=== PATIENT | female | born 1985 | race Caucasian/White ===

== ENCOUNTER 2018-04-23 12:23 | Inpatient (IN) | payer OTHER ==
--- NOTE | 2018-04-23 13:22 | OBHP ---
Datetime: 04/23/2018 13:16 IP Adm Impression: Term, intrauterine IP Admit Plan: Admit to unit; Initiate labor induction protocol Admit Comment, IP Provider: @ _ 39 wks with GDMA2 on insulin c/o decreased movments x 1 d ay and itching on and off. pt reprots ctx intemritte on and off, denies lof, vb, +FM. 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 abormal pap, fibroids, hx of oviarna cyst, no STI PMH: denies PSH: denies FHX: non contriubotyr MEDS: PNV NKDA A/P @ _ 39 wks GA IOL for GDMA 2 admit npo, ivf admisison labs blodo glucse fingerstic q 4 hours pain ma gmet ivh nst Pelvic Type - PN: Adequate Extremities - PN: Normal Abdomen - PN: Normal Back - PN: Normal Breast - PN: Normal Lungs - PN: Normal Heart - PN: Normal Thyroid - PN: Normal Neurologic - PN: Normal HEENT - PN: Normal General - PN: Normal Presentation-Admit: Vertex FHR - Baseline A Provider: 150 Membranes, Provider: Intact Contraction Comments Provider: irreuglar Gestation - Est Wks by US: 38.6 IP Hx Assessment: The History has been Reviewed and is Current EGA AdmitDate IP: 38.6 Vital Signs Provider: Reviewed; Within Normal Limits IP Chief Complaint: Decreased movement; Other NICHD Variability Prov Fetus A: Moderate 6-25bpm FHR Category Provider Fetus A: Category I Dilatation, Provider: 0 Effacement, Provider: 0 Station, Provider: -3 Genitourinary Exam: Normal DTRs - PN: Normal
[2018-04-23] MEDS ORDERED: Lactated Ringer's 1,000 ML IV ONE (13:30)
[2018-04-23 13:52] LABS: BASO % 0.3 % (0.0-2.0); EOS # 0.2 K/uL (0.0-0.7); EOS % 2.5 % (0.0-4.0); LYMPH # 1.3 K/uL (1.0-4.3); LYMPH % 19.4 % (20.0-40.0); MEAN CELL VOLUME 85.3 fL (81.0-99.0); MEAN CORPUSCULAR HEMOGLOBIN 29.3 pg (27.0-31.0); MEAN CORPUSCULAR HGB CONC 34.4 g/dL (33.0-37.0); MEAN PLATELET VOLUME 8.8 fL (7.2-11.7); MONO # 0.4 K/uL (0.0-0.8); MONO % 6.2 % (0.0-10.0); NEUT # 4.8 K/uL (1.8-7.0); NEUT % 71.6 % (50.0-75.0); RBC 3.77 Mil/uL (3.80-5.20); RED CELL DISTRIBUTION WIDTH 13.5 % (11.5-14.5); WHITE BLOOD COUNT 6.7 K/uL (4.8-10.8)
[2018-04-23] MEDS: Lactated Ringer's 1,000 ML IV SCH ×2 (13:54→21:59)
[2018-04-23 14:02] LABS: SQUAMOUS EPITHIAL 7 /hpf (0-5); URINE BACTERIA FEW (<OCC); URINE BILIRUBIN NEGATIVE (NEGATIVE); URINE BLOOD NEGATIVE (NEGATIVE); URINE CLARITY Hazy (Clear); URINE COLOR Yellow (YELLOW); URINE GLUCOSE (UA) NORMAL (Normal); URINE LEUKOCYTE ESTERASE 2+ Leu/uL (Negative); URINE PROTEIN NEGATIVE (NEGATIVE); URINE UROBILINOGEN NORMAL mg/dL (0.2-1.0)
[2018-04-23 14:12] LABS: ALBUMIN 3.2 g/dL (3.5-5.0); ALT/SGPT 24 U/L (9-52); AST/SGOT 28 U/L (14-36); BLOOD UREA NITROGEN 6 mg/dL (7-17); CALCIUM 8.8 mg/dl (8.6-10.4); GFR AFRICAN-AMERICAN > 60; GFR NON-AFRICAN AMERICAN > 60
--- NOTE | 2018-04-23 23:55 | OBPN ---
Datetime: 04/23/2018 23:52 IP Progress Impression: Normal progression of labor IP Informed Consent Obtain: Induction of Labor IP Progress Plan: Continue present management Membranes, Provider: Intact Contraction Comments Provider: irregular FHR - Baseline A Provider: 120 Gestation - Est Wks by US: 38.6 Presentation-Admit: Vertex IP Progress Note Comment: pt seen and examined for progression of labor pt rpeorts cramping pain but is tolerated, does not deisre any pain meidcisn dneis any lightheadnss, dizzyness, cp, sob, lof, vb, +FM VSS VE: /-3 Vtx intact EMF: Cat I TOCO; irrelguar a/p @ 38.6 wks GA IOL for GDMA2 -s/p cervidl removed -pitcon as per protocol -pain manamgnet prn -conto tooc and efm -fbs q 4hours Vital Signs Provider: Reviewed; Within Normal Limits FHR Category Provider Fetus A: Category I NICHD Variability Prov Fetus A: Moderate 6-25bpm Dilatation, Provider: 1 Effacement, Provider: 50 Station, Provider: -3 NICHD Decel Fetus A IP Provider: None
[2018-04-24] MEDS ORDERED: Oxytocin 30 UNIT 30 UNITS/500 ML BAG IV SCH (01:15)
[2018-04-24] MEDS ORDERED: Oxytocin 30 UNIT 30 UNITS/500 ML BAG IV ONE (02:04)
[2018-04-24] MEDS ORDERED: Penicillin G 5 Million Unit Vial IVPB ONE (02:17)
[2018-04-24] MEDS ORDERED: Penicillin G Potassium 5 MU in Dextrose 5% In Water 50 ML IV ONE (03:30)
[2018-04-24] MEDS: Lactated Ringer's 1,000 ML IV SCH (05:52)
--- NOTE | 2018-04-24 07:00 | OBPN ---
Datetime: 04/24/2018 06:56 IP Progress Plan: Continue present management Membranes, Provider: Intact FHR - Baseline A Provider: 125 Gestation - Est Wks by US: 39.0 IP Progress Note Comment: pt seen and examined for progression of labor pitocin 8mu/min VSS VE; /-3 vtx intact EFM: Cat I TOOC: q 2-3 min a/p @ 39 wks GA IOL for GDMA2 pitocin as per protocl pain mangmetn prn cont jurgen dn efm blood glucose q 4hours Vital Signs Provider: Reviewed; Within Normal Limits FHR Category Provider Fetus A: Category I NICHD Variability Prov Fetus A: Moderate 6-25bpm Dilatation, Provider: 1 Effacement, Provider: 50 Station, Provider: -3
[2018-04-24] MEDS ORDERED: Penicillin G Potassium 2.5 MU in Dextrose 5% In Water 50 ML IV SCH ×3 (07:30→14:45)
--- NOTE | 2018-04-24 10:12 | OBPN ---
Datetime: 04/24/2018 10:07 IP Procedures: Artificial ROM IP Progress Plan: Continue present management Membranes, Provider: Ruptured Amniotic Fluid Color, Provider: Clear Contraction Comments Provider: q 2-3 min FHR - Baseline A Provider: 125 Gestation - Est Wks by US: 39.0 Presentation-Admit: Vertex IP Progress Note Comment: pt seen and examined for progression of labor VSS VE: /-3 AROM clear EMF: Cat I TOCO: q 2-3 min Pitcoin 14mu/min A/P @ 39 wks GA IOL for GDMA 2 pitoicn as per protocol cont toco and efm analgesi prn blood glucse prn Vital Signs Provider: Reviewed; Within Normal Limits FHR Category Provider Fetus A: Category I NICHD Variability Prov Fetus A: Moderate 6-25bpm Dilatation, Provider: 1 Effacement, Provider: 50 Station, Provider: -3
--- NOTE | 2018-04-24 11:07 | OBPN ---
Datetime: 04/24/2018 11:03 IP Progress Impression: Normal progression of labor IP Progress Plan: Continue present management Membranes, Provider: Ruptured Amniotic Fluid Color, Provider: Clear FHR - Baseline A Provider: 125 Gestation - Est Wks by US: 39.0 Presentation-Admit: Vertex IP Progress Note Comment: pt seen and examiend for progressin o laobr, reprots ctx pian increaseing does not wnt pain meidciatn VSS V:E /-3 vtx, intact EFM: cat I TOCO: q 2 -3 min pitocin a/p @ 39 wks GA IOL For GDMA2 ocnt pitocin as per protocol cont toco and emf blood glucse q 4 hours analgesia prn ivh Vital Signs Provider: Reviewed; Within Normal Limits FHR Category Provider Fetus A: Category I NICHD Variability Prov Fetus A: Moderate 6-25bpm Dilatation, Provider: 2 Effacement, Provider: 50 Station, Provider: -3 NICHD Decel Fetus A IP Provider: None
[2018-04-24] MEDS ORDERED: Bupivacaine HCl/FentaNYL Cit 100 ML EPI ONE (12:42)
--- NOTE | 2018-04-24 17:38 | OBPN ---
Datetime: 04/24/2018 17:30 IP Progress Plan: Continue present management Membranes, Provider: Ruptured Contraction Comments Provider: q 2 min FHR - Baseline A Provider: 125 Gestation - Est Wks by US: 39.0 Presentation-Admit: Vertex IP Progress Note Comment: pt seen and examined and reports pain controlled after epdural VSS VE /-2 EFM: Cat I TOCO: q 2 min Pitocin 16 mu/min A/P @ 39 wks GA IOL for GDMA cont pitocin as per protocol cont toco and efm gbs prophylaxis FHR Category Provider Fetus A: Category I Dilatation, Provider: 4 Effacement, Provider: 80 Station, Provider: -2 NICHD Decel Fetus A IP Provider: None
[2018-04-24] MEDS ORDERED: Sodium Citrate/Citric Acid 15 ml Sol PO ONE (18:30)
--- NOTE | 2018-04-24 18:37 | OBPN ---
Datetime: 04/24/2018 18:32 IP Progress Impression: Arrest of dilatation/descent IP Informed Consent Obtain: Section Delivery; Risks, Benefits and Alternatives Discussed IP Progress Plan: Deliver- Section Membranes, Provider: Ruptured Contraction Comments Provider: q 2 min FHR - Baseline A Provider: 150 Gestation - Est Wks by US: 39.0 Presentation-Admit: Vertex IP Progress Note Comment: Pt seen and examined for progression of labor Pt advised on continued IOL vs PLTCS R/b/a/i dw patient VS Temp 99 see above for other vs Ve; /-2 vtx arom EMF: Cat I TOOC: q 2 min A/P @ 39 wks GA with arrest of dilation with GDMA2 r/b/a/i of PLTCS dw patient no tlmited to bleedign infection risk to bowel, bladder or other organ s possible blood transfuion consent OR/Anestehsia aware preop antibiocs bicitra fowler to gravity scds abdominal prep Vital Signs Provider: Reviewed; Within Normal Limits FHR Category Provider Fetus A: Category I Dilatation, Provider: 4 Effacement, Provider: 80 Station, Provider: -2
[2018-04-24] MEDS ORDERED: Sodium Citrate/Citric Acid 15 ml Sol ONE (18:41)
[2018-04-24] MEDS ORDERED: cefOXitin IV 2 gm in Saline 2 GM/50 ML BAG IVPB ONE (18:41)
[2018-04-24] MEDS ORDERED: Oxytocin 20 units in LR 2,000 ML IV ONE (18:42)
[2018-04-24] MEDS: cefOXitin IV 2 gm in Saline 2 GM/50 ML BAG IV SCH (18:53)
[2018-04-24] MEDS ORDERED: Oxycodone/Acetaminophen 5/325 mg Tab PO PRN (19:16)
[2018-04-24] MEDS ORDERED: Lidocaine 2% MPF (5 ml) Inj ONE (19:44)
--- NOTE | 2018-04-24 20:11 | PCM.SURG1 ---
Surgeon's Initial Post Op Note - Surgeon's Notes Surgeon: Kari Cleaning MD Reverberatory Furnace Supervisor: Yon Vigil MD Type of Anesthesia: Other Anesthesia Administered By: Dr Briones Pre-Operative Diagnosis: Term intrauterine 39 weeks, GDMA2, arrest of dilation Operative Findings: live male cephalic presentation, agpars 9,9 weight of 7lbs 9 ounces. normal appearing utuers, tubes and ovaries bilaterally. pediatricn present for delivery. small superficial laceration <1cm right cheeck , insepected, appears clean and dry, steri strip applied, pt and informed. Dr Yon Vigil was pharmacy technician assistant and present for entire caes adn essental in gaining entry, retraction, exposure, holding the bladder blade, hleping to deliver the infant, closign all layers. Post-Operative Diagnosis: same as above Operation Performed: Primary low trasnverse cesearen section Specimen/Specimens Removed: placenta Estimated Blood Loss: EBL {In ML}: 800 Blood Products Given: N/A Drains Used: No Drains Post-Op Condition: Good Date of Surgery/Procedure: 04/24/18 Time of Surgery/Procedure: 17:25
--- NOTE | 2018-04-24 20:23 | OBDS ---
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 Babies in Womb: 1 Attempted: No Labor Anesthesia: Epidural LABOR INFORMATION Reason for Induction: Maternal Diabetes Onset of Labor: 04/24/2018 08:00 Cervical Ripening Agents: Cervidil Other Ripening Agents: 10mg Oxytocin: Induction Group B Beta Strep: Positive Antibiotics # of Doses: 4 Antibiotics Time of Last Dose: 245pm Steroids Given: None Reason Steroids Not Administered: Not Applicable MEMBRANES Membranes Rupture Method: Artificial Rupture of Membranes: 04/24/2018 09:18 Length of Rupture (hrs): 10.15 Amniotic Fluid Color: Clear Amniotic Fluid Amount: Small STAGES OF LABOR Stage 3 hrs: 0 Stage 3 min: 1 Total Time in Labor hrs: 11 Total Time in Labor min: 28 CSECTION DELIVERY Primary Indication: ARREST OF DILATATION CSection Urgency: Non Elective CSection Incidence: Primary Labor: Labor Elective: Nonelective CSection Incision: Lower Uterine Transverse BABY A INFORMATION Infant Delivery Date/Time: 04/24/2018 19:27 Method of Delivery: Born in Route : No : N/A SHOULDER DYSTOCIA BABY A Infant Delivery Date/Time: 04/24/2018 19:27 PRESENTATION/POSITION BABY A Presentation: Cephalic Cephalic Presentation: N/A Breech Presentation: N/A PLACENTA INFORMATION BABY A Placenta Delivery Time : 04/24/2018 19:28 SCORES BABY A Heart Rate 1 min: >100 bpm Resp Effort 1 min: Good Cry Reflex Irritability 1 min: Cough or Sneeze or Pulls Away Muscle Tone 1 min: Active Motion Color 1 min: Body Atkins, Extremities Blue SCORE 1 MIN: 9 Heart Rate 5 min: >100 bpm Resp Effort 5 min: Good Cry Reflex Irritability 5 min: Cough or Sneeze or Pulls Away Muscle Tone 5 min: Active Motion Color 5 min: Body Atkins, Extremities Blue SCORE 5 MIN: 9 INFORMATION BABY A Gestational Age at Delivery: 39.0 Gestational Status: Term Infant Outcome : Liveborn Infant Condition : Stable Sex: Male IDENTIFICATION/MEDS BABY A ID Band Number: [id number] ID Band Location: Left Leg; Left Arm Sensor Applied: Yes Sensor Number: [id number] Sensor Location : Cord Clamp Vitamin K Given : Aquamephyton 1 mg IM; Left Thigh Erythromycin Given: Given Both Eyes WEIGHT/LENGTH BABY A Infant Birthweight (gms): 3420 Weight (lb): 7 Infant Weight (oz): 9 Length Inches: 20.00 Length cms: 50.8 CORD INFORMATION BABY A No. Cord Vessels: 3 Nuchal Cord : N/A Cord Blood Taken: Yes Suction: None ASSESSMENT BABY A Complications: None Physical Findings at Delivery: Within Normal Limits Infant Respirations: Appears Normal Closing Agent/ALS Called : Yes Infant Care By: DR WEBB Transferred To: Nursery
[2018-04-24] MEDS ORDERED: cefOXitin IV 2 gm in Saline 2 GM in Sodium Chloride 0.9% 100 ML IV ONE (20:30)
[2018-04-24] MEDS ORDERED: HYDROmorphone 0.5 mg/0.5 ml ISec ONE (21:55)
[2018-04-24] MEDS: HYDROmorphone 0.5 mg/0.5 ml ISec IVP PRN (21:55)
[2018-04-25] MEDS ORDERED: cefOXitin IV 2 gm in Saline 2 GM/50 ML BAG IVPB ONE (02:16)
[2018-04-25] MEDS: HYDROmorphone 0.5 mg/0.5 ml ISec IVP PRN ×2 (02:51→06:24)
[2018-04-25] MEDS: cefOXitin IV 2 gm in Saline 2 GM/50 ML BAG IV SCH ×2 (03:30→10:22)
--- NOTE | 2018-04-25 07:15 | OP ---
PROCEDURE DATE: 04/24/2018 SURGEON: Kari Cleaning MD DEPARTMENT HEAD: . TYPE OF ANESTHESIA: Epidural. ANESTHESIA BY: Dr. Briones. PREOPERATIVE DIAGNOSES: Term intrauterine at 39 weeks, GDM A2, arrest of dilation. POSTOPERATIVE DIAGNOSES: Term intrauterine at 39 weeks, GDM A2, arrest of dilation. OPERATIVE FINDINGS: Live male infant, cephalic presentation, Apgars 9 and 9, weight of 7 pounds and 9 ounces. Normal appearing uterus, tubes, and ovaries bilaterally. The patient small superficial laceration to the skin of the right cheek, less than 1 cm, inspected, was clean and dry. No bleeding. No other surrounding structures affected. Dry Steri-Strip applied. The patient and both informed. Dr. Yon Vigil, surgical dressing maker, who was present for the entire case and assisted in gaining entry, retraction, exposure, holding the bladder blade, helping to deliver the infant, closing all layers. OPERATION PERFORMED: Primary low transverse section. SPECIMEN REMOVED: Placenta. ESTIMATED BLOOD LOSS: 800 mL. BLOOD PRODUCTS: None. COMPLICATIONS: None. DESCRIPTION OF PROCEDURE: After the risks and benefits and alternatives of the planned procedure, including, but not limited to, infection, hemorrhage, deep vein thrombosis, atelectasis, pneumonia, pulmonary embolism, damage to bladder, damage to the ureter, renal insufficiency, renal failure, wound infection, wound dehiscence, incisional hernia, keloid formation, damage to the large and small intestine, damage to the inferior vena cava and ureter requiring extensive repair, anesthesia complication, , fluid overload, cerebral edema, embolism, and other complications were discussed were not listed above have been explained to the patient. All her questions were answered. Informed consent was obtained. The patient was taken to operating room in stable condition. Once she was in the operating room, the patient was given preoperative dose of antibiotics. After that, anesthesia was found to be adequate. The patient was then prepped and draped in the usual sterile fashion. Timeout confirmed correct the patient and the procedure. A Pfannenstiel skin incision was made with a scalpel and carried down to underlying fascia with Bovie. The fascia was opened transversely and dissected off the rectus abdominis musculature. The rectus abdominal musculature was then in the midline. peritoneum which was then entered sharply, incised superiorly and incised in a curvilinear fashion, dissected off the lower uterine segment. The lower uterine segment was then entered through a curvilinear incision. Surgeon's finger was then inserted into the lower uterine segment, . That was delivered easily. Nose and mouth were suctioned free of amniotic fluid. The remainder of the was delivered without any difficulty. Cord was doubly clamped and cut, and baby was handed off to the awaiting remote coders who was in attendance. the cord was submitted for cord gases. Cord blood was then collected. Placenta was then removed manually. The uterus was exteriorized of all clots and debris. The uterine incision was repaired with 0 Vicryl in running continuous locked fashion and a second layer of the same suture was used to close the uterus in a running imbricated manner. Good hemostasis at the uterine incision site. There was normal tubes and ovaries bilaterally. The uterus appeared to be boggy. Methergine was given x1. The uterus appeared to be firm. The uterus was then returned to the abdomen. Paracolic gutters were cleared off all clots and debris. There was good hemostasis at the uterine incision site. The peritoneum was re-approximated with 2-0 chromic in running continuous fashion. The rectus was re-approximated with 2-0 chromic in an interrupted manner. The fascia was re-approximated and closed with 0 Vicryl in a running continuous fashion. Subcutaneous layer was closed with 2-0 plain in an interrupted manner. The skin was re-approximated and closed with 4-0 Monocryl in a running subcuticular fashion. At the end of the procedure, all needle, sponge, and instrument counts were noted to be correct x2. The patient tolerated the procedure well and was transferred to the recovery room in stable condition. The area was then re-examined after the procedure, again, consistent with findings noted above and was explained of the findings with good prognosis. All questions were answered. Kari Cleaning MD
[2018-04-25 08:22] LABS: BASO % 0.2 % (0.0-2.0); EOS # 0.1 K/uL (0.0-0.7); EOS % 0.6 % (0.0-4.0); HEMOGLOBIN 10.5 g/dL (11.0-16.0); LYMPH # 1.1 K/uL (1.0-4.3); LYMPH % 10.6 % (20.0-40.0); MEAN CELL VOLUME 84.3 fL (81.0-99.0); MEAN CORPUSCULAR HEMOGLOBIN 28.6 pg (27.0-31.0); MEAN CORPUSCULAR HGB CONC 33.9 g/dL (33.0-37.0); MEAN PLATELET VOLUME 8.5 fL (7.2-11.7); MONO # 0.6 K/uL (0.0-0.8); MONO % 5.9 % (0.0-10.0); NEUT # 8.7 K/uL (1.8-7.0); NEUT % 82.7 % (50.0-75.0); RBC 3.68 Mil/uL (3.80-5.20); RED CELL DISTRIBUTION WIDTH 13.4 % (11.5-14.5)
[2018-04-25 08:25] LABS: WHITE BLOOD COUNT 10.5 K/uL (4.8-10.8)
[2018-04-25 08:40] LABS: ALB/GLOB RATIO 1.1 (1.0-2.1); ALBUMIN 2.5 g/dL (3.5-5.0); ALT/SGPT 28 U/L (9-52); AST/SGOT 28 U/L (14-36); BLOOD UREA NITROGEN 4 mg/dL (7-17); CALCIUM 7.9 mg/dl (8.6-10.4); GFR AFRICAN-AMERICAN > 60; GFR NON-AFRICAN AMERICAN > 60
--- NOTE | 2018-04-25 08:58 | OBPPN ---
Datetime: 04/25/2018 08:36 PP Pain Prov: Within normal limits PP Nausea Prov: Denies PP Flatus Prov: No PP BM Prov: No PP Breasts Prov: Normal PP Heart Prov: Normal PP Lungs Prov: Normal PP Abdomen/Uterus Prov: Normal PP Lochia Prov: Normal PP Vulva/Perineum Prov: Normal PP CVA Tenderness Prov: Normal PP Extremities Prov: Normal PP C/S Incision Prov: Normal PP Progress Prov: Normal PP Impression Prov: Normal progression PP Plan Prov: Continue present management PP Progress Note Prov: pt seen and examiend and rpeorts pian [facility]. pt ambuitng, voidgn, passing flatus, tolerating diet without nause, vomiting. pt is breast feeding. pt dnies any fever, chills, cp, sob, bowel ro bladder concners. pt bronson any sadness or depressoin VSS PE GEN NAD AAO X 3 RESP: CTRAB?L CVS: RRR, +S1/S2 ABD: soft, NT/ND, no guaridng,no reobund tendnere no rigity, no uteirne tennders Incsion c/d/i healing wlel VE: minimla lochia, ext; No calf tenderss b/l, negative hmona sign s/p pltcxs pod #1 with gdma 2 on inlsuine pain mamagnnet enocurabe breast feedign and mabuaitopn am labs, includign blood glucse bowel regimen abdominla binder/incenetive spirometer Vital Signs Provider PP: Reviewed; Within Normal Limits
[2018-04-25] MEDS: Prenatal Multivit/Folic Acid/Iron Tab PO SCH (09:33)
[2018-04-25] MEDS: cefOXitin IV 2 gm in Dextrose 2 GM/50 ML BAG IVPB SCH ×2 (10:39→17:54)
[2018-04-25] MEDS: Oxycodone/Acetaminophen 5/325 mg Tab PO PRN ×2 (13:05→17:52)
[2018-04-25 17:19] VITALS: O2SAT 100
[2018-04-25] MEDS ORDERED: Bisacodyl 5mg EC Tab PO ONE (19:17)
[2018-04-26] MEDS: Oxycodone/Acetaminophen 5/325 mg Tab PO PRN ×2 (00:14→08:31)
[2018-04-26] MEDS ORDERED: Rubella Virus Vaccine Inj SC ONE (09:09)
[2018-04-26] MEDS ORDERED: Simethicone 40 mg/0.6 ml Liquid (30 ml) PO SCH (10:00)
[2018-04-26] MEDS ORDERED: Measles, Mumps, and Rubella 0.5 ML VIAL SC ONE (10:00)
[2018-04-26] MEDS: Prenatal Multivit/Folic Acid/Iron Tab PO SCH (10:14)
[2018-04-26] MEDS: Simethicone 80 mg Chewtab PO SCH ×3 (10:17→17:14)
[2018-04-26] MEDS ORDERED: Magnesium Citrate Oral SOL (300 ml) PO ONE (15:53)
[2018-04-26 17:00] VITALS: BP 109/70; PULSE 82; RESP 20; TEMP 98.1
== END 2018-04-26 19:45 | disposition home or self-care (01) | DRG 766 ==
LOC: C.EROB 12:23 → C.4D 12:45 → UNDOADMIN 12:52 → C.4M 04-24 22:56
PROVIDERS: ADMIT Obstetrics & Gynecology; ATTEND Obstetrics & Gynecology
PROC: 10D00Z1 Extraction of Products of Conception, Low, Open Approach (ICD-10-PCS; principal; 2018-04-24)
PROC: 3E0P7VZ Introduction of Hormone into Female Reproductive, Via Natural or Artificial Opening (ICD-10-PCS; 2018-04-24)
PROC: 10907ZC Drainage of Amniotic Fluid, Therapeutic from Products of Conception, Via Natural or Artificial Opening (ICD-10-PCS; 2018-04-24)
DX: O62.1 Secondary uterine inertia (principal); O24.424 Gestational diabetes mellitus in childbirth, insulin controlled; O99.824 Streptococcus B carrier state complicating childbirth; O36.8130 Decreased fetal movements, third trimester, not applicable or unspecified; Z3A.39 39 weeks gestation of pregnancy; Z37.0 Single live birth